=== PATIENT | female | born 1985 | race Two or more races ===

== ENCOUNTER 2021-08-15 19:51 | Emergency (ER) | payer OTHER ==
[2021-08-15 19:58] VITALS: BP 126/85; PULSE 86; TEMP 98.6; BMI 28.8
[2021-08-15] MEDS ORDERED: TETRACAINE 0.5% OPHTH SOLN 2 ML BOTTLE ONE (20:54)
[2021-08-15] MEDS ORDERED: FLUORESCEIN NA 1 EA STRIP ONE (23:41)
== END 2021-08-16 00:15 | disposition home or self-care (01) ==
LOC: JERFT 19:51 → JER 19:51
DX: S05.91XA Unspecified injury of right eye and orbit, initial encounter (principal); W45.8XXA Other foreign body or object entering through skin, initial encounter; Z77.098 Contact with and (suspected) exposure to other hazardous, chiefly nonmedicinal, chemicals
CPT/HCPCS: 99283-25